=== PATIENT | female | born 1970 | race Caucasian/White ===

== ENCOUNTER 2022-09-06 10:39 | Day surgery (SDC) | payer MEDICAID, SELFPAY ==
[2022-09-06] VITALS (10 sets, daily range): BP systolic 105–136; BP diastolic 68–90; PULSE 75–89; RESP 16; TEMP 36.2–37.1; O2SAT 95–100; BMI 31.6
[2022-09-06] MEDS: Acetaminophen 500 MG Tablet 1000 MG PO (11:12)
[2022-09-06] MEDS: Lactated Ringers 1,000 ML 15 ML IV (11:12)
[2022-09-06] MEDS: Ketorolac 10 MG Tablet 30 MG PO (11:17)
--- NOTE | 2022-09-06 11:26 | PCM.HP.BLA ---
History and Physical Date of Admission: 09/06/22 51-year-old Fe presenting for hysteroscopy D&C with possible polyp resection for postmenopausal bleeding and thickened endometrium on ultrasound. Past medical history significant for acute kidney injury, breast cancer of the left breast, and pulmonary embolism Past surgical history significant for breast lumpectomy, sections and port insertion Medications reviewed. Allergies include bupropion, sulfa, adhesives, and aripirazole Physical exam, at her preoperative visit her blood pressure was 108/76, height 5 foot 4-1/2 inches and weight 176 pounds. General: Awake, alert, no acute distress, well-hydrated. Neck: Supple no lymphadenopathy, normal thyroid no masses lungs clear to auscultation bilaterally no wheezes rales or rhonch heart S1-S2 regular rate rhythm no murmurs or gallops appreciated i Assessment & Plan Assessment/Plan (1) PMB (postmenopausal bleeding): PLAN: Risk benefits and alternatives to hysteroscopy D&C with possible polyp or fibroid resection were discussed with patient, her questions were answered to her satisfaction she desires to proceed. (2) Endometrial thickening on ultrasound:
[2022-09-06] MEDS: Lidocaine 1% /Epi 1:100 (20ml) 20 ML Vial (12:00)
--- NOTE | 2022-09-06 12:19 | OP.PCM_ITS ---
Problems Associated Problem List Diagnoses (1) Endometrial thickening on ultrasound: (2) PMB (postmenopausal bleeding): (3) Fibroids, submucosal: Report of Operation Date of Procedure: 09/06/22 Pre-Operative Diagnosis: PMB, thickened endometrium on US Post-Operative Diagnosis: same Surgery/Procedure Performed:: Hysteroscopy with visual D&C and fibroid resection Description of Surgical Findings:: atrophic endometrium, normal cervix and vagina, p;osterior wall submucosal fibroid Surgeon: Jaquelin Wooten machine tool technology instructor: None Type of Anesthesia: MAC/Supplemental/Local Anesthesiologist: Emily Sadler Special Medications: none Specimen's removed: endoemtrial curretings Drains: none Estimated Blood Loss (mL): 10 Fluids Replaced: 450 Description of Procedure: The patient was taken to the OR where she was prepped and draped in dorsal lithotomy position. The weighted speculum was placed in the vagina and the anterior lip of the cervix was grasped with a single-tooth tenaculum. A paracervical block was administered with 1% lidocaine with 1-100,000 epinephrine solution. The cervix was dilated serially with Hegar dilators. The Symphion hysteroscope was placed into the uterine cavity and the above findings were noted. Bilateral tubal ostia were identified. The lining itself was atrophic. There is a posterior submucosal fibroid that was 50% in the myometrium. No other focal abnormalities in the endocervical canal or uterine cavity. The resection device was readied and inserted. A visual D&C of the anterior endometrium was done with the resectoscope. The resector was then used to remove 90+ percent of the fibroid for the posterior uterine wall. Hemostasis was excellent. The instruments were removed from the vagina. The specimen was handed off and sent to pathology. All sponge and needle counts were correct. Vaginal sweep was performed by me. The patient was awakened and taken to the recovery room in stable condition. Calculated hysteroscopic fluid deficit is approximately 650 cc of normal saline Grafts/Implants Used: none Procedure Start Time: 11:59 Procedure Stop Time: 12:14 Complications none Admit VTE Documentation VTE Present on Admission: No VTE Mechan Device Prophylaxis: SCD's VTE Pharm Prophylaxis ordered?: No
--- NOTE | 2022-09-06 13:55 | EMB_PTH ---
PATIENT: PRAVEENA TATE LOC: [facility] [place] U#:[id number] AGE/SX: 51/F ROOM: RE09/06/[address]: Dr. Jaquelin Wootne MD : [id number] BED: DIS: 09/06/2022 SPEC #: [id number] RECD: 09/06/22 15:56 STATUS: RON ACOSTA #: [id number] LUKE: 09/06/22 13:[address]: Jaquelin Wooten DEPT: SURGICAL PATHOLOGY RECD BY: Afshan Guzman Tissues: Endometrium, NOS Procedures: Surgery Specimen Level IV HEADER OPERATION: Hysteroscopy, D & C, fibroid resection, Symphion PRE-OP DIAGNOSIS: Postmenopausal bleeding, endometrial thickening TISSUE SUBMITTED: Endometrial contents MICROSCOPIC DIAGNOSIS Endometrial curettings and fibroid resection: Numerous fragments of myometrial tissue, consistent with fragments of leiomyoma. A few fragments of inactive endometrial tissue. See comment. KATHY:melissa 09/10/2022 COMMENT Correlation with clinical findings and appropriate follow up are necessary. MICROSCOPIC DESCRIPTION Slides are reviewed. GROSS DESCRIPTION Received in fixative is one container labeled with the patient's name and designated endometrial contents. The specimen consists of multiple irregular fragments of carpio, indurated tissue that in aggregate measure 2.0 x 2.5 x 0.3 cm. The specimen is totally submitted in one cassette. / SJ:melissa 09/09/2022 TC:1 CPT: 32276
--- NOTE | 2022-09-06 14:07 | DCINST_ITS ---
Discharge Instructions Diet Discharge Diet: No restrictions Activity May resume sexual activity in: 2 weeks Lifting Restrictions: none Dressing / Incision Call your doctor if your incision/area has: Sudden Increased Bleeding and Foul Smelling Discharge Call your doctor if you observe: Fever of 101 or Higher and Using more than 1 pad per hour (for 2 hrs in a row) Follow Up Care Please Follow Up With: Jaquelin Wooten MD When: As needed. My office will contact you with your pathology results next week. Call [phone] to make an appointment or with any concerns. Test Results: Test results from this visit will be discussed in further detail at your follow- up appointment, if applicable. Discharge Plan Admission Primary Reason for Your Visit: Hysteroscopy D&C Attending Provider: Jaquelin Wooten Primary Care Provider: XAVIER MURPHY Discharge Orders/Prescriptions Prescriptions: No Action anastrozole 1 mg tablet 1 mg PO DAILY Label Comments: take 1 tablet by mouth once daily lamotrigine 25 mg tablet 200 mg PO DAILY Label Comments: take 2 tablets by mouth once daily AT NOON pantoprazole [Protonix] 40 mg Tablet,Delayed Release (Dr/Ec) 40 mg PO DAILY montelukast [Singulair] 10 mg Tablet 10 mg PO DAILY loratadine [Claritin] 10 mg Tablet 10 mg PO DAILY calcium carbonate-vitamin D3 [Calcium 600 + D(3)] 600 mg-10 mcg (400 unit) Tablet 1 tab PO BID Eliquis 2.5 mg tablet 2.5 mg PO BID Label Comments: take 1 tablet by mouth twice a day Referrals / Follow Up: XAVIER MURPHY [Other] Disposition Disposition (needs filled in before D/C Order can be placed): Home, Self Care
== END 2022-09-06 14:16 | disposition home or self-care (01) ==
LOC: SDC 10:43 → AC 10:45
PROVIDERS: Referring Provider Obstetrics & Gynecology; Visit Provider Obstetrics & Gynecology
PROC: 0UB98ZZ Excision of Uterus, Via Natural or Artificial Opening Endoscopic (ICD-10-PCS; CPT 58558; principal; 2022-09-06 13:40)
DX: D25.0 Submucous leiomyoma of uterus (principal); N95.0 Postmenopausal bleeding; Z78.0 Asymptomatic menopausal state; Z79.01 Long term (current) use of anticoagulants; Z79.899 Other long term (current) drug therapy; Z85.3 Personal history of malignant neoplasm of breast; Z86.711 Personal history of pulmonary embolism
CPT/HCPCS: 58558; 00952; 88305; J7120; J2405